=== PATIENT | male | born 1970 | race African-American/Black ===

== ENCOUNTER 2020-10-15 08:56 | Emergency (ER) | payer MEDICAID ==
[~2020-10-15] VITALS: Ht 180.3 cm; Wt 136.3 kg
[2020-10-15 09:05] VITALS: BP 188/115
[2020-10-15] MEDS ORDERED: AZITHROMYCIN 250 MG TABLET. PO ONE (09:30)
[2020-10-15] MEDS ORDERED: cefTRIAXone IM 500 MG VIAL. IM ONE (09:30)
--- NOTE | 2020-10-15 09:39 | PHYS DOC ---
Past Medical History Past Medical History: Diabetes-Type II, Hypertension Past Surgical History: Other Additional Past Surgical Histo: R HAND Smoking Status: Current Every Day Smoker Additional Information: 0.75 PPD Alcohol Use: None General Adult EDM: Chief Complaint: SEXUALLY TRANSMITTED DISEASE HPI: HPI: 50-year-old male presented emerge department today after having penile drainage for about 24 hours. He recently believes he was exposed to an STD but he is unsure which one. He denies any penile rashes or rashes. He has some dysu antonio which is mild nonradiating without alleviating factors. He denies any other symptoms. Review of systems negative for chest pain or shortness of breath. Negative for nausea vomiting or abdominal pain. All other review of systems negative. Heart Score: C/O Chest Pain: No Risk Factors: Risk Factors: DM, Current or recent (<one month) smoker, HTN, HLP, family history of CAD, obesity. Risk Scores: Score 0 - 3: 2.5% MACE over next 6 weeks - Discharge Home Score 4 - 6: 20.3% MACE over next 6 weeks - Admit for Clinical Observation Score 7 - 10: 72.7% MACE over next 6 weeks - Early Invasive Strategies Current Medications: Current Medications Medications (Trade) Dose Ordered Sig/Niraj Start Time Stop Time Status Last Admin Dose Admin Azithromycin (Zithromax) 1,000 mg 1X ONCE 10/15/20 09:30 10/15/20 09:31 DC Ceftriaxone Sodium (Rocephin Im) 500 mg 1X ONCE 10/15/20 09:30 10/15/20 09:31 DC Allergies: Allergies: Allergies Coded Allergies Type Severity Reaction Last Updated Verified No Known Drug Allergies 10/15/20 No Physical Exam: PE: Constitutional: Well developed, well nourished, no acute distress, non-toxic appearance. [] HENT: Normocephalic, atraumatic, bilateral external ears normal, oropharynx moist, no oral exudates, nose normal. [] Eyes: PERRLA, EOMI, conjunctiva normal, no discharge. [] Neck: Normal range of motion, no tenderness, supple, no stridor. [] Cardiovascular:Heart rate regular rhythm, no murmur [] Lungs & Thorax: Bilateral breath sounds clear to auscultation [] Abdomen: Bowel sounds normal, soft, no tenderness, no masses, no pulsatile masses. [] Skin: Warm, dry, no erythema, no rash. [] Back: No tenderness, no CVA tenderness. [] Extremities: No tenderness, no cyanosis, no clubbing, ROM intact, no edema. [] Neurologic: Alert and oriented X 3, normal motor function, normal sensory function, no focal deficits noted. [] Psychologic: Affect normal, judgement normal, mood normal. [] Current Patient Data: Vital Signs: Vital Signs Date Time Temp Pulse Resp B/P (MAP) Pulse Ox O2 Delivery O2 Flow Rate FiO2 10/15/20 09:05 98.8 61 16 188/115 (139) 96 Room Air 98.8 EKG: EKG: [] Radiology/Procedures: Radiology/Procedures: [] Course & Med Decision Making: Course & Med Decision Making Pertinent Labs and Imaging studies reviewed. (See chart for details) [] Rocephin and azithromycin given in the emergency department. Will discharge to follow-up with health department for comprehensive STD evaluation and management. Patient will need to inform sexual contacts of possible exposure. Manan Disclaimer: Manan Disclaimer: This electronic medical record was generated, in whole or in part, using a voice recognition dictation system. Departure Departure Impression: Primary Impression: STD (male) Disposition: HOME / SELF CARE / HOMELESS Condition: STABLE Patient Instructions: Safe Sex, Sexually Transmitted Disease Additional Instructions: EMERGENCY DEPARTMENT GENERAL DISCHARGE INSTRUCTIONS Follow-up with your primary physician in 1 to 2 days and the health department in 1 to 2 days for comprehensive STD evaluation and treatment. Return to the emergency department if you have any new or concerning findings. Thank you for coming to [facility] Emergency Department (ED) today and trusting us with you care. We trust that you had a positive experience in our Emergency Department. If you wish to speak to the department management, you may call the Director at [phone]. Follow up is important in emergency/acute care visits. This condition should be evaluated by your primary care physician and any necessary consulting services for continued management within a few days (1-2) after discharge. Return to the emergency department if you have any new or concerning symptoms including but not limited to fever, chills, nausea, vomiting, intractable pain, any new rashes, chest pain, shortness of breath, uncontrolled bleeding, difficulty breathing, and/or vision loss. 1. Do you have a private Doctor? If you do not have a private doctor, please ask for a resource list of physicians or clinics that may be able to assist you with follow up care. 2. If a lab test or culture has been done and does not come back immediately, your results will be reviewed and you will be notified if you need a change in treatment. 3. Your care today has been supervised by a physician who is specially trained in emergency care. Many problems require more than one evaluation for a complete diagnosis and treatment. We recommend that you schedule your follow up appointment as recommended to ensure complete treatment of you illness or injury. If you are unable to obtain follow up care and continue to have a problem, or if your condition worsens, we recommend that you return to the ED. 4. We are not able to safely determine your condition over the phone nor are we able to give sound medical advice over the phone. For these safety reasons, if you call for medical advice we will ask you to come to the ED for further evaluation. IF YOUR SYMPTOMS WORSEN OR NEW SYMPTOMS DEVELOP, OR YOU HAVE CONCERNS ABOUT YOUR CONDITION; OR IF YOUR CONDITION WORSENS WHILE YOU ARE WAITING FOR YOUR FOLLOW UP APPOINTMENT; EITHER CONTACT YOUR PRIMARY CARE DOCTOR, THE PHYSICIAN WHOSE NAME AND NUMBER YOU WERE GIVEN, OR RETURN TO THE ED IMMEDIATELY. HU JUNIOR MD Oct 15, 2020 09:39
== END 2020-10-15 10:07 | disposition home or self-care (01) ==
LOC: ER 08:56
DX: A64 Unspecified sexually transmitted disease (principal); E11.9 Type 2 diabetes mellitus without complications; I10 Essential (primary) hypertension; F17.200 Nicotine dependence, unspecified, uncomplicated
CPT/HCPCS: 96372; 99283; J0696

== ENCOUNTER 2021-03-25 12:39 | Emergency (ER) | payer MEDICAID ==
[~2021-03-25] VITALS: Ht 180.3 cm; Wt 144.2 kg
[2021-03-25] MEDS ORDERED: IV NORMAL SALINE 1000ML BAG 1,000 ML IV ONE (13:30)
[2021-03-25] MEDS ORDERED: KETOROLAC 30 MG/ML VIAL. IVP ONE (13:30)
[2021-03-25] MEDS ORDERED: hydrALAZINE 20 MG/ML VIAL. IVP ONE (13:45)
--- NOTE | 2021-03-25 13:50 | PHYS DOC ---
Past Medical History Past Medical History: Diabetes-Type II, Hypertension Past Surgical History: Other Additional Past Surgical Histo: R HAND Smoking Status: Current Every Day Smoker Alcohol Use: None General Adult EDM: Chief Complaint: HYPERTENSION HPI: HPI: Patient is a 50-year-old male who presents emergency department concerning being out of his medication for blood pressure for the past 2 months. Patient reports he was feeling a slight headache this morning when he woke up and took his blood pressure and noticed it was 214/150. Patient became concerned and has come to the emergency department to obtain prescriptions for his blood pressure medications. Patient reports taking 5 mg amlodipine daily, 100 mg metoprolol succinate daily, 40 mg lisinopril daily. Patient states he has his metoprolol medication and took it as directed however does not have medications amlodipine or lisinopril. Patient denies chest pains, shortness of breath, visual disturbances, dizziness or blurred vision, denies shortness of breath cough or congestion, denies recent fever or chills, denies urinary tract infection type signs and symptoms, denies seeing blood in his urine. Denies abdominal pain, nausea, vomiting, or diarrhea. Denies numbness or tingling to his extremities, denies swelling to his extremities. Patient denies other physical complaints or physical concerns. Review of Systems: Review of Systems: 14 body systems of review of systems have been reviewed. See HPI for pertinent positives and negative responses, otherwise all other systems are negative, nonpertinent or noncontributory. Constitutional: Negative except as outlined in HPI above. Skin: Negative except as outlined in HPI above. Eyes: Negative except as outlined in HPI above. HENT: Negative except as outlined in HPI above. Respiratory: Negative except as outlined in HPI above. Cardiovascular: Negative except as outlined in HPI above. GI: Negative except as outlined in HPI above. : Negative except as outlined in HPI above. Musculoskeletal: Negative except as outlined in HPI above. Integument: Negative except as outlined in HPI above. Neurologic: Negative except as outlined in HPI above. Endocrine: Negative except as outlined in HPI above. Lymphatic: Negative except as outlined in HPI above. Psychiatric: Negative except as outlined in HPI above. Heart Score: C/O Chest Pain: No Risk Factors: Risk Factors: DM, Current or recent (<one month) smoker, HTN, HLP, family history of CAD, obesity. Risk Scores: Score 0 - 3: 2.5% MACE over next 6 weeks - Discharge Home Score 4 - 6: 20.3% MACE over next 6 weeks - Admit for Clinical Observation Score 7 - 10: 72.7% MACE over next 6 weeks - Early Invasive Strategies Current Medications: Current Medications Medications (Trade) Dose Ordered Sig/Niraj Start Time Stop Time Status Last Admin Dose Admin Ketorolac Tromethamine (Toradol 30mg Vial) 30 mg 1X ONCE 03/25/21 13:30 03/25/21 13:31 DC Sodium Chloride 1,000 ml @ 1,000 mls/hr 1X ONCE 03/25/21 13:30 03/25/21 14:29 Allergies: Allergies: Allergies Coded Allergies Type Severity Reaction Last Updated Verified No Known Drug Allergies 10/15/20 No Physical Exam: PE: Constitutional: Well developed, well nourished, no acute distress, non-toxic appearance. 50-year-old male in no apparent distress. HENT: Normocephalic, atraumatic. Eyes: Conjunctiva normal, no discharge. PERRLA, no papilledema or hemorrhage on funduscopic exam Neck: Normal range of motion, no stridor. Cardiovascular: No cyanosis appreciated, distal cap refill less than 2 seconds. Heart sounds S1-S2 to auscultation. Lungs & Thorax: Patient is in no respiratory distress, no audible adventitious lung sounds appreciated. No adventitious lung sounds appreciated per auscultation, clear all lung irby Abdomen: Nontender, no abnormalities noted. Skin: Warm, dry, no erythema, no rash. Back: No tenderness, no deformities. Extremities: No tenderness, no cyanosis, no clubbing, ROM intact, no edema. Neurologic: Alert and oriented X 3, normal motor function, normal sensory function, no focal deficits noted. Psychologic: Affect normal, judgement normal, mood normal. Current Patient Data: Vital Signs: Vital Signs Date Time Temp Pulse Resp B/P (MAP) Pulse Ox O2 Delivery O2 Flow Rate FiO2 03/25/21 13:19 97.6 57 18 212/110 (144) 98 Room Air 97.6 EKG: EKG: EKG performed at 1319 by ED nursing staff shows a sinus rhythm heart rate 58 bpm with a leftward axis deviation, [place] interval 0.200, QTc interval 0.418, no acute STEMI, no ACS, no acute ischemia appreciated, EKG interpreted by ED attending physician Dr. Crandall. Radiology/Procedures: Radiology/Procedures: PATIENT: KARISSA CLARKUNT: [id number] : 1970 LOCATION: ER AGE: 50 SEX: M EXAM STATUS: REG ER ORD. PHYSICIAN: NAOMI LUND APRN REASON: Hypertensive urgency PROCEDURE: CHEST AP ONLY Single view of the chest. 03/25/2021 1:41 PM Indication: Reason: Hypertensive urgency Comparison: None Findings: Heart appears mildly enlarged. No pneumothorax is identified. There is central vascular congestion. Interstitial thickening seen. Findings could represent edema versus an atypical or viral infectious process. No acute osseous changes are seen. IMPRESSION: Mild cardiomegaly, central vascular congestion, interstitial thickening. Favor potential considerations include mild edema versus an atypical or viral infectious process Electronically signed by: Yordy Barnes MD (03/25/2021 1:55 PM) [id number] Course & Med Decision Making: Course & Med Decision Making Pertinent Labs and Imaging studies reviewed. (See chart for details) 50-year-old male, vital signs reviewed, presents emergency department concerning high blood pressure at home this morning. Patient's current blood pressure is 212/110, physical examination is unremarkable, will order EKG, chest x-ray, CBC, CMP, troponin I, cardiac isoenzymes, BNP pro NT, urinalysis assay to rule out endorgan damage. Will treat with 10 mg hydralazine, 1 L normal saline, 30 mg Toradol for minor headache of 2 out of 10 pain scale. Will reevaluate after period of time. EKG is unremarkable. Patient's chest x-ray concerning for mild edema, labs supporting of endorgan dam age, blood pressure has reduced to 189/91, pulse 61, respirations 16 and unlabored, 100% on room air, patient continues to deny physical complaints or physical concerns, reporting his headache is relieved, is nontoxic in appearance, is not hypoxic and is in no distress. Discussed with patient it is imperative he follows up with his primary care physician soon for his chronic hypertension, will disclose abnormal labs and discharge instructions to review with his primary care physician, will prescribe his blood pressure medications, I did review and verify with his pharmacist most current blood pressure medication regimen. Patient gave verbal understanding of discharge instructions, strict return to ER precautions and concerns, follow-up with primary care, and is amenable to ED discharge planning. Discussed with the patient all findings and diagnostic testing as well as the need to follow-up with their primary care provider for further evaluation and treatment or return to the ED if any new or worsening symptoms. Strict return precautions were also discussed at length, the patient voiced understanding and agreement with the discharge planning. The patient was nontoxic in appearance, in no apparent distress, and hemodynamically stable at the time of disposition. Dragon Disclaimer: [employer] Disclaimer: This electronic medical record was generated, in whole or in part, using a voice recognition dictation system. Departure Departure Impression: Primary Impression: Hypertension Qualified Codes: I10 - Essential (primary) hypertension Disposition: HOME / SELF CARE / HOMELESS Condition: GOOD Referrals: NO PCP (PCP) Patient Instructions: Hypertension Additional Instructions: You were seen in the emergency department today for high blood pressure. You had stated your out of your blood pressure medications. I am prescribing your medications for 30 days, however as we discussed there were concerning findings on your chest x-ray and labs. It is imperative that you follow-up with your primary care physician to review your blood pressure medication problems, high blood pressure problems, and to review the following labs. Today your creatinine was 1.9, BUN 22, your NT proBNP equals 2120 your urinalysis did not show proteinuria/microalbuminuria, your chest x-ray showed concerning signs for mild pulmonary edema. It is a must that you follow-up with your primary care physician please call tomorrow for the soonest appointment. Return to the emergency department for worsening symptoms or other concerns. Thank you for visiting our Emergency Department. It was a pleasure taking care of you today in the emergency department and we appreciate you trusting us with your care. If any additional problems come up don't hesitate to return to visit us. Please follow up with your primary care provider so they can plan additional care if needed and know about the problem that you had. If symptoms worsen come back to the Emergency Department. Any concerning symptoms that start such as chest pain, shortness of air, weakness or numbness on one side of the body, running high fevers or any other concerning symptoms return to the ER. EMERGENCY DEPARTMENT GENERAL DISCHARGE INSTRUCTIONS Thank you for coming to [facility] Emergency Department (ED) today and trusting us with you care. We trust that you had a positive experience in our Emergency Department. If you wish to speak to the department management, you may call the Director at [phone]. YOUR FOLLOW UP INSTRUCTIONS ARE FOLLOWS: 1. Do you have a private Doctor? If you do not have a private doctor, please ask for a resource list of physicians or clinics that may be able to assist you with follow up care. 2. The Emergency Physicain has interpreted your x-rays. The X-Ray specialist will also review them. If there is a change in the findings, you will be notified in 48 hours when at all possible. 3. A lab test or culture has been done, your results will be reviewed and you will be notified if you need a change in treatment. ADDITIONAL INSTRUCTIONS AND INFORMATION: 1. Your care today has been supervised by a physician who is specially trained in emergency care. Many problems require more than one evaluation for a complete diagnosis and treatment. We recommend that you schedule your follow up appointment as recommended to ensure complete treatment of you illness or injury. If you are unable to obtain follow up care and continue to have a problem, or if your condition worsens, we recommend that you return to the ED. 2. We are not able to safely determine your condition over the phone nor are we able to give sound medical advice over the phone. For these safety reasons, if you call for medical advice we will ask you to come to the ED for further evaluation. 3. If you have any questions regarding these discharge instructions please call the ED at [phone]. SAFETY INFORMATION: In the interest of safety, wellness, and injury prevention; we encourage you to wear your sealbelt, if you smoke; quite smoking, and we encourage family to use a protective helmet for bicycling and other sporting events that present an increased risk for head injury. IF YOUR SYMPTOMS WORSEN OR NEW SYMPTOMS DEVELOP, OR YOU HAVE CONCERNS ABOUT YOUR CONDITION; OR IF YOUR CONDITION WORSENS WHILE YOU ARE WAITING FOR YOUR FOLLOW UP A PPOINTMENT; EITHER CONTACT YOUR PRIMARY CARE DOCTOR, THE PHYSICIAN WHOSE NAME AND NUMBER YOU WERE GIVEN, OR RETURN TO THE ED IMMEDIATELY. Scripts Lisinopril (LISINOPRIL) 40 Mg Tablet 1 TAB PO DAILY for hypertension, #30 TAB 0 Refills Prov: NAOMI LUND APRN 03/25/21 Metoprolol Succinate (METOPROLOL SUCCINATE ( XL )) 100 Mg Tab.er.24h 1 TAB PO DAILY for hypertension, #30 TAB 0 Refills Prov: NAOMI LUND APRN 03/25/21 NAOMI LUND APRN Mar 25, 2021 13:49
[2021-03-25 13:51] LABS: BASO # 0.1 x10^3/uL (0.0-0.2); BASO % 1 % (0-3); EOS # 0.1 x10^3/uL (0.0-0.7); EOS % 2 % (0-3); HEMATOCRIT 46.4 % (39.0-53.0); HEMOGLOBIN 15.6 g/dL (13.0-17.5); LYMPH # 1.9 x10^3/uL (1.0-4.8); LYMPH % 29 % (24-48); MEAN CORPUSCULAR HEMOGLOBIN 29 pg (25-35); MEAN CORPUSCULAR HGB CONC 34 g/dL (31-37); MEAN CORPUSCULAR VOLUME 86 fL (79-100); MONO # 0.3 x10^3/uL (0.0-1.1); MONO % 5 % (0-9); NEUT # 4.2 x10^3/uL (1.8-7.7); NEUT % 63 % (31-73); PLATELET COUNT 240 x10^3/uL (140-400); RED BLOOD COUNT 5.39 x10^6/uL (4.30-5.70); RED CELL DISTRIBUTION WIDTH 14.2 % (11.5-14.5); WHITE BLOOD COUNT 6.6 x10^3/uL (4.0-11.0)
[2021-03-25 13:53] VITALS: BP 185/114
--- NOTE | 2021-03-25 13:57 | RAD ---
Single view of the chest. 03/25/2021 1:41 PM Indication: Reason: Hypertensive urgency Comparison: None Findings: Heart appears mildly enlarged. No pneumothorax is identified. There is central vascular con gestion. Interstitial thickening seen. Findings could represent edema versus an atypical or viral inf ectious process. No acute osseous changes are seen. IMPRESSION: Mild cardiomegaly, central vascular congestion, interstitial thickening. Favor potential considerations include mild edema versus an atypical or viral infectious process Electronically signed by: Yordy Barnes MD (03/25/2021 1:55 PM) [id number]
[2021-03-25 14:19] LABS: CALCIUM 8.7 mg/dL (8.5-10.1); CREATININE 1.9 mg/dL (0.7-1.3); GFR 45.4; POTASSIUM 4.3 mmol/L (3.5-5.1)
[2021-03-25 14:27] LABS: ALBUMIN 3.3 g/dL (3.4-5.0); ALBUMIN/GLOBULIN RATIO 0.8 (1.0-1.7); TOTAL BILIRUBIN 0.4 mg/dL (0.2-1.0); TOTAL PROTEIN 7.5 g/dL (6.4-8.2)
[2021-03-25 14:29] LABS: BILIRUBIN,URINE NEGATIVE (NEG); CLARITY,URINE CLEAR; COLOR,URINE YELLOW; NITRITE,URINE NEGATIVE (NEG); PROTEIN,URINE 100 mg/dL (NEG-TRACE); UROBILINOGEN,URINE 0.2 mg/dL (0.2 mg/dL)
--- NOTE | 2021-03-25 14:38 | EKG ---
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
[2021-03-25 14:45] LABS: BACTERIA,URINE 0 /HPF (0-FEW); HYALINE CASTS, URINE FEW /HPF; WBC,URINE OCC /HPF (0-4)
[2021-03-25] MEDS ORDERED: METO-247 PO (15:21)
[2021-03-25] MEDS ORDERED: LISI-130 PO (15:21)
== END 2021-03-25 15:32 | disposition home or self-care (01) ==
LOC: ER 12:39
DX: I10 Essential (primary) hypertension (principal); E11.9 Type 2 diabetes mellitus without complications; F17.200 Nicotine dependence, unspecified, uncomplicated
CPT/HCPCS: 36415; 71045; 80053; 81001; 82553; 83880; 84484; 85025; 93005; 96361; 96374; 96375; 99285; J0360; J1885; J7030